=== PATIENT | male | born 1975 | race Caucasian/White ===

== ENCOUNTER 2016-04-15 16:06 | Emergency (ER) | payer MEDICAID ==
[2016-04-15 16:53] VITALS: BP 131/65
[2016-04-15] MEDS ORDERED: HYDROmorphone 1 MG/ML Syringe IM ONE (17:45)
[2016-04-15] MEDS ORDERED: Ondansetron 4 MG Tab.DIS PO ONE (17:50)
--- NOTE | 2016-04-15 17:57 | EDM.PDOC ---
ED HPI GI/ABDOMINAL - General Chief Complaint: Gastrointestinal Problem Stated Complaint: SURGERY LAST FRI/NO BM/DISCOMFORT Time Seen by Provider: 04/15/16 17:38 Source: Reports: Patient, Family, RN notes reviewed History Limitations: Reports: No limitations - History of Present Illness INITIAL COMMENTS - FREE TEXT/NARRATIVE: 40-year-old gentleman presents emergency Department day complaint of abdominal pain and distention, he recently underwent back surgery L3-L4 postop day 3 he states he has been passing gas but limited on bowel movements urine is passing but also seems to be decreased he has been needing and drinking okay back pain has improved leg pain has improved but he has more pain and distention in the abdomen - Related Data Allergies/ADRs: Allergies Allergy/AdvReac Type Severity Reaction Status Date / Time fexofenadine HCl Allergy Hives Verified 04/12/16 07:31 [From Lilly] oxycodone Allergy Hives Verified 04/12/16 07:31 Home Meds: Home Meds Hydrocodone/Acetaminophen [Hydrocodon-Acetaminophen 5-325] 1 tab PO ASDIRECTED PRN 04/15/16 [History] Magnesium Citrate [Citrate of Magnesia] 296 ml PO ASDIRECTED 04/15/16 [History] Magnesium Hydroxide [Milk of Magnesia] 30 ml PO ASDIRECTED 04/15/16 [History] Sennosides [Senna] 8.6 mg PO ASDIRECTED 04/15/16 [History] Past Medical History HEENT History: Reports: Impaired vision Other HEENT History: wears Respiratory History: Reports: Other (see below) Other Respiratory History: coughing Musculoskeletal History: Reports: Back pain, chronic Other Musculoskeletal History: R shoulder injury - Past Surgical History HEENT Surgical History: Reports: None Respiratory Surgical History: Reports: None Musculoskeletal Surgical History: Reports: Shoulder surgery Other Musculoskeletal Surgeries/Procedures:: R elbow. laminectomy Social & Family History - Tobacco Use Smoking Status *Q: Light Tobacco Smoker Years of Tobacco use: 20 Packs/Tins Daily: 1 Used Tobacco, but Quit: No Second Hand Smoke Exposure: No - Caffeine Use Caffeine Use: Reports: Coffee, Energy drinks, Soda - Alcohol Use Days Per Week of Alcohol Use: 0 Number of Drinks Per Day: 4 Total Drinks Per Week: 0 - Recreational Drug Use Recreational Drug Use: No Recreational Drug Type: Reports: Marijuana/Hashish Recreational Drug Use Frequency: Not Used In Over 4 Months ED ROS GENERAL - Review of Systems Review Of Systems: See Below Constitutional: Denies: fever, chills HEENT: Reports: No symptoms Respiratory: Reports: no symptoms Cardiovascular: Reports: No symptoms GI/Abdominal: Reports: Abdominal pain, Constipation, Distension, Nausea. Denies : Vomiting : Reports: no symptoms Musculoskeletal: Reports: back pain Skin: Reports: no symptoms (improved) Neurological: Reports: no symptoms ED EXAM, GI/ABD - Physical Exam Exam: See Below Text/Narrative:: General: male, moderate discomfort secondary to pain, alert and oriented x3 HEENT: head is atraumatic normocephalic, eyes pupils equal round reactive to light and accommodation sclera clear no conjunctivitis appreciated. Ears tympanic membranes clear and sadler landmarks and light reflex are present bilaterally canals are clear. Nose no septal deviation, nares are clear, no blood present. Mouth mucosa is moist and pink no erythema or exudate noted in soft palate, tongue is midline uvula is midline, dentition is intact. Neck: Supple no thyromegaly no tracheal deviation. Nodes: Cervical nodes subclavicular nodes nontender no palpable lymphadenopathy noted. Lungs: clear to auscultation bilaterally with symmetrical respirations, no adventitious noise appreciated. CV: Regular rate and rhythm S1 and S2 appreciated no murmurs rubs or gallops noted. Abdomen: Soft, generalized tenderness, no palpable masses or organomegaly appreciated, moderate distention, no guarding bowel sounds are present, Course - Vital Signs Last Recorded V/S: Last Vital Signs Temp 96.4 F 04/15/16 17:23 Pulse 73 04/15/16 17:23 Resp 20 04/15/16 17:23 BP 131/65 04/15/16 17:23 Pulse Ox 96 04/15/16 17:23 - Orders/Labs/Meds Orders: Active Orders 24 hr Category Date Time Status Peripheral IV Care [RC] . DIRECTED Care 04/15/16 18:40 Active Abdomen 1V Flat [CR] Stat Exams 04/15/16 17:45 Taken Abdomen Pelvis w Cont [CT] Stat Exams 04/15/16 18:39 Taken Sodium Chloride 0.9% [Normal Saline] 100 ml Med 04/15/16 19:30 Active IV ASDIRECTED Sodium Chloride 0.9% [Saline Flush] Med 04/15/16 18:39 Active 10 ml FLUSH ASDIRECTED PRN Peripheral IV Insertion Adult [OM.PC] Urgent Oth 04/15/16 18:36 Ordered Medication Orders Sodium Chloride (Normal Saline) 100 mls @ 3 mls/sec IV ASDIRECTED LAMONTE Last Admin: 04/15/16 19:32 Dose: 3 mls/sec Sodium Chloride (Saline Flush) 10 ml FLUSH ASDIRECTED PRN PRN Reason: Keep Vein Open Last Admin: 04/15/16 19:32 Dose: 10 ml Labs: Laboratory Tests 04/15/16 04/15/16 Range/Units 17:58 17:58 WBC 10.7 (4.5-11.0) K/uL RBC 4.89 (4.30-5.90) M/uL Hgb 14.4 (12.0-15.0) g/dL Hct 42.0 (40.0-54.0) % MCV 86 (80-98) fL MCH 29 (27-31) pg MCHC 34 (32-36) % Plt Count 242 (150-400) K/uL Neut % (Auto) 71 H (36-66) % Lymph % (Auto) 17 L (24-44) % [place] % (Auto) 11 H (2-6) % Eos % (Auto) 2 (2-4) % Baso % (Auto) 0 (0-1) % Sodium 139 L (140-148) mmol/L Potassium 4.3 (3.6-5.2) mmol/L Chloride 99 L (100-108) mmol/L Carbon Dioxide 29 (21-32) mmol/L Anion Gap 15.3 H (5.0-14.0) mmol/L BUN 15 (7-18) mg/dL Creatinine 1.0 (0.8-1.3) mg/dL Est Cr Clr Drug Dosing 106.70 mL/min Estimated GFR (MDRD) > 60 (>60) Glucose 115 H (74-106) mg/dL Calcium 8.8 (8.5-10.1) mg/dL Meds: Medications Generic Name Dose Route Start Last Admin Trade Name Freq PRN Reason Stop Dose Admin Sodium Chloride 100 mls @ 3 mls/sec 04/15/16 19:30 04/15/16 19:32 Normal Saline IV 3 mls/sec ASDIRECTED LAMONTE Administration Sodium Chloride 10 ml 04/15/16 18:39 04/15/16 19:32 Saline Flush FLUSH 10 ml ASDIRECTED PRN Administration Keep Vein Open Discontinued Medications Generic Name Dose Route Start Last Admin Trade Name Harpreetq PRN Reason Stop Dose Admin Hydromorphone HCl 1 mg 04/15/16 17:45 04/15/16 17:58 Dilaudid IM 04/15/16 17:46 1 mg ONETIME ONE Administration Iopamidol 150 ml 04/15/16 19:30 04/15/16 19:32 Isovue-300 (61%) IV 04/15/16 19:31 150 ml . DIRECTED LAMONTE Administration Ondansetron HCl 4 mg 04/15/16 17:50 04/15/16 18:01 Zofran Odt PO 04/15/16 17:51 4 mg ONETIME ONE Administration Sodium Chloride 10 ml 04/15/16 19:16 Saline Flush FLUSH 04/15/16 19:17 ONETIME ONE Departure - Departure Time of Disposition: 20:46 Disposition: Home, Self-Care 01 Condition: good Clinical Impression: Ileus, postoperative Forms: ED Department Discharge Additional Instructions: use the Reglan as needed every 6 hours to help stimulate the bowel, keep your followup appointment with surgery - My Orders Last 24 Hours: My Active Orders 04/15/16 17:45 Abdomen 1V Flat [CR] Stat 04/15/16 18:36 Peripheral IV Insertion Adult [OM.PC] Urgent 04/15/16 18:39 Abdomen Pelvis w Cont [CT] Stat Sodium Chloride 0.9% [Saline Flush] 10 ml FLUSH ASDIRECTED PRN 04/15/16 18:40 Peripheral IV Care [RC] . DIRECTED 04/15/16 19:30 Sodium Chloride 0.9% [Normal Saline] 100 ml IV ASDIRECTED - Assessment/Plan Last 24 Hours: My Active Orders 04/15/16 17:45 Abdomen 1V Flat [CR] Stat 04/15/16 18:36 Peripheral IV Insertion Adult [OM.PC] Urgent 04/15/16 18:39 Abdomen Pelvis w Cont [CT] Stat Sodium Chloride 0.9% [Saline Flush] 10 ml FLUSH ASDIRECTED PRN 04/15/16 18:40 Peripheral IV Care [RC] . DIRECTED 04/15/16 19:30 Sodium Chloride 0.9% [Normal Saline] 100 ml IV ASDIRECTED Plan: Assessment Acuity = acute Site and laterality = ileus Etiology = probably secondary to recent surgery Manifestations = abdominal pain Location of injury = home Lab values = CBC, CMP unremarkable flat film does show a markedly dilated colon a CT scan is consistent with an ileus Plan I did review labs and CT scan results with him he did have a bowel movement but passing gas while in the ED which had some improvement he was given one dose of Reglan while in the ED I did offer him hospital admission he declined at this time would prefer outpatient treatment therefore try Reglan 10 mg one tablet every 6 hours as needed keep his follow up appointment with surgery Patient was in agreement with the plan all questions were answered, they were instructed to return to the emergency department or call for worsening symptoms. This note was dictated using [employer] voice recognition software please call with any questions.
[2016-04-15] MEDS ORDERED: Sodium Chloride 0.9% 10 ML Syringe FLUSH PRN (18:39)
[2016-04-15] MEDS ORDERED: Sodium Chloride 0.9% 10 ML Syringe FLUSH ONE (19:16)
[2016-04-15] MEDS ORDERED: Iopamidol 612 MG/ML 150 ML Bottle IV SCH (19:30)
[2016-04-15] MEDS ORDERED: Sodium Chloride 0.9% 100 ML IV SCH (19:30)
[2016-04-15] MEDS: Metoclopramide 10 MG/2 ML SDV IVPUSH ONE ×2 (20:00→20:45)
[2016-04-15] MEDS ORDERED: Metoclopramide 10 MG Tab PO ONE (21:02)
--- NOTE | 2016-04-16 08:49 | CR ---
Abdomen 1V Flat HISTORY: Abdominal pain COMPARISON: CT scan 04/15/2016. FINDINGS: Mildly distended colon with gas. Findings likely represent colonic ileus. Distal colonic o bstructive process could have a similar appearance. Recommend follow-up films based on clinical symp tomatology. Report
== END 2016-04-15 21:16 | disposition home or self-care (01) ==
LOC: JP.ED 16:06
DX: K91.3 Postprocedural intestinal obstruction (principal); F17.210 Nicotine dependence, cigarettes, uncomplicated; Z98.890 Other specified postprocedural states; Z79.899 Other long term (current) drug therapy; Z88.5 Allergy status to narcotic agent; Z88.8 Allergy status to other drugs, medicaments and biological substances
CPT/HCPCS: 36415; 74000; 74177; 80048; 85025; 96372; 96374; 99285; A9270; J1170; J2765; J7030; J7050

== ENCOUNTER 2016-09-30 19:51 | Emergency (ER) | payer MEDICAID ==
[2016-09-30 20:04] VITALS: BP 129/85
--- NOTE | 2016-09-30 20:39 | EDM.PDOC ---
ED HPI GENERAL MEDICAL PROBLEM - General Chief Complaint: ENT Problem Stated Complaint: TOOTHACHE Time Seen by Provider: 09/30/16 20:10 Source of Information: Reports: Patient History Limitations: Reports: No Limitations - History of Present Illness INITIAL COMMENTS - FREE TEXT/NARRATIVE: Noman presents today with complaints of acute right sided upper dental pain. He was seen by a [facility]ist today and provided an antibiotic for dental impaction. Surgical consult pending. Onset: Today Quality: Reports: Sharp, Stabbing, Throbbing Severity: Moderate Improves with: Reports: Other (mild improvement with use of ibuprofen. ) Associated Symptoms: Reports: Headaches, Nausea/Vomiting. 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 Pain Score (Numeric/FACES): 7 - Related Data Allergies Allergy/AdvReac Type Severity Reaction Status Date / Time fexofenadine HCl Allergy Hives Verified 09/30/16 20:01 [From Lilly] oxycodone Allergy Hives Verified 09/30/16 20:01 Home Meds: Home Meds Hydrocodone/Acetaminophen [Hydrocodon-Acetaminophen 5-325] 1 tab PO ASDIRECTED PRN 04/15/16 [History] Magnesium Citrate [Citrate of Magnesia] 296 ml PO ASDIRECTED PRN 04/15/16 [ History] Magnesium Hydroxide [Milk of Magnesia] 30 ml PO ASDIRECTED PRN 04/15/16 [History ] Sennosides [Senna] 8.6 mg PO ASDIRECTED PRN 04/15/16 [History] Past Medical History HEENT History: Reports: Impaired Vision Other HEENT History: wears Respiratory History: Reports: Other (See Below) Other Respiratory History: coughing Genitourinary History: Reports: Renal Calculus Musculoskeletal History: Reports: Back Pain, Chronic Other Musculoskeletal History: R shoulder injury - Past Surgical History Neurological Surgical History: Reports: Laminectomy, Lumbar Spine Musculoskeletal Surgical History: Reports: Shoulder Surgery Social & Family History - Tobacco Use Smoking Status *Q: Current Every Day Smoker Years of Tobacco use: 25 Packs/Tins Daily: 1 Used Tobacco, but Quit: No Second Hand Smoke Exposure: No - Caffeine Use Caffeine Use: Reports: Coffee, Energy Drinks, Soda - Alcohol Use Days Per Week of Alcohol Use: 0 Number of Drinks Per Day: 4 Total Drinks Per Week: 0 - Recreational Drug Use Recreational Drug Use: No Recreational Drug Type: Reports: Marijuana/Hashish Recreational Drug Use Frequency: Not Used In Over 4 Months ED ROS ENT - Review of Systems Review Of Systems: See Below Constitutional: Denies: Fever, Chills, Diaphoresis HEENT: Reports: Dental Pain, Ear Pain. Denies: Ear Discharge, Eye Discharge, Eye Pain, Hearing Loss, Nosebleed, Nose Pain, Sinus Problem, Throat Pain, Throat Swelling, Vertigo, Vision Change Respiratory: Denies: Shortness of Breath, Wheezing, Cough, Sputum Cardiovascular: Denies: Chest Pain, Dyspnea on Exertion, Lightheadedness, Palpitations, Syncope GI/Abdominal: Reports: Nausea. Denies: Constipation, Diarrhea, Distension, Vomiting : Reports: No Symptoms Musculoskeletal: Reports: No Symptoms Skin: Denies: Cyanosis, Jaundice, Rash, Erythema, Wound, Lesions Neurological: Reports: Headache. Denies: Dizziness, Numbness, Tingling Psychiatric: Reports: No Symptoms Hematologic/Lymphatic: Reports: No Symptoms Immunologic: Reports: No Symptoms ED EXAM, ENT - Physical Exam Exam: See Below Text/Narrative:: Noman is an alert, oriented and pleasant 41 year old male presenting for dental pain. Pain has worsened during day today, use of ibuprofen not helping with pain. He was evaluated in [place] per a dentist and provided antibiotic with referral to oral surgeon for wisdom tooth extraction at site of pain. Exam Limited By: No Limitations General Appearance: Alert, WD/WN, No Apparent Distress Eye Exam: Bilateral Eye: EOMI, PERRL Ears: Normal External Exam, Normal Canal, Hearing Grossly Normal, Other (Normal TM to right ear, left TM is dull with mild redness. ) Nose: Normal Inspection, Normal Mucousa, No Blood Mouth/Throat: Normal Inspection, Normal Gums, Normal Lips, Dental Pain, Dental Tenderness, Other (Noted dental caries to multiple teeth. ). No: Dental Trauma , Drooling, Lip Swelling, Lip Ulcers, Oral Ulcers, Tongue Swelling, Tonsillar Erythema, Tonsillar Exudates, Tonsillar Swelling, Uvular Deviation, Uvular Edema Head: Atraumatic, Normocephalic Neck: Normal Inspection, Supple, Non-Tender, Full Range of Motion. No: Lymphadenopathy (R), Lymphadenopathy (L) Respiratory/Chest: No Respiratory Distress, Lungs Clear, Normal Breath Sounds, No Accessory Muscle Use, Chest Non-Tender Cardiovascular: Normal Peripheral Pulses, Regular Rate, Rhythm, No Edema, No Murmur, No Rub Back: Normal Inspection, Full Range of Motion. No: CVA Tenderness (R), CVA Tenderness (L) Extremities: Normal Inspection, Normal Range of Motion, Non-Tender, No Pedal Edema, Normal Capillary Refill Neurological: Alert, Oriented, CN II-XII Intact, Normal Cognition, Normal Gait, No Motor/Sensory Deficits, Other (No nystagmus, dizziness or vertigo. No photophobia with pain. ) Psychiatric: Normal Affect, Normal Mood Skin: Warm, Dry, Intact, Normal Color, No Rash Lymphatic: No Adenopathy Course - Vital Signs Last Recorded V/S: Last Vital Signs Temp 36.3 C 09/30/16 20:03 Pulse 58 L 09/30/16 20:03 Resp 16 09/30/16 20:03 BP 129/85 09/30/16 20:03 Pulse Ox 98 09/30/16 20:03 - Re-Assessments/Exams Free Text/Narrative Re-Assessment/Exam: 09/30/16 20:35 [place] SUPERVISOR OVENS reviewed for multiple states. Last opiate 04/13/16 #120 Patient was status post laminectomy procedure. Departure - Departure Time of Disposition: 20:32 Disposition: Home, Self-Care 01 Condition: Good Clinical Impression: Dental impaction, Pain, dental - Discharge Information Instructions: Tooth Injuries, [id number] Referrals: Maynor Zacarias PA-C [Primary Care Provider] - Forms: ED Department Discharge Additional Instructions: You are suffering from dental pain due to dental impaction. Continue to take the prescribed antibiotic you were given today. Pain decreases after use of antibiotic for 48 hours. You can take Ibuprofen 600mg to 800mg by mouth three times a day for pain (anti- inflammatory effect) with food to prevent stomach irritation. Acetaminophen 500mg to 1000mg three times a day, alternating with use of ibuprofen can also be used for pain. Hydrocodone/acetaminophen 5/325 mg, one to two tablets by mouth three times a day for pain not relieved with use of ibuprofen or acetaminophen can be used. You are provided a hard copy prescription for hydrocodone/acetaminophen 5/325mg , one to two tabs three times a day for 5 days #15. Follow up with your dentist and oral surgeon as directed. If you pain or symptoms worsen, have facial swelling, fever, difficulty eating or drinking, please return. - Assessment/Plan Assessment:: Dental impaction Dental pain Pending surgical consult Plan: Continue to take the prescribed antibiotic given today. Pain decreases after use of antibiotic for 48 hours. He can take Ibuprofen 600mg to 800mg by mouth three times a day for pain (anti- inflammatory effect) with food to prevent stomach irritation. Acetaminophen 500mg to 1000mg three times a day, alternating with use of ibuprofen can also be used for pain, not taking more then 4,000mg PO in one day. Hydrocodone/acetaminophen 5/325 mg, one to two tablets by mouth three times a day for pain not relieved with use of ibuprofen or acetaminophen can be used. Patient provided a hard copy prescription for hydrocodone/acetaminophen 5/325mg , one to two tabs three times a day for 5 days #20. Follow up with dentist and oral surgeon as directed. If pain or symptoms worsen, have facial swelling, fever, difficulty eating or drinking, please return.
== END 2016-09-30 21:07 | disposition home or self-care (01) ==
LOC: JP.ED 19:51
DX: K01.1 Impacted teeth (principal); F17.210 Nicotine dependence, cigarettes, uncomplicated; Z87.442 Personal history of urinary calculi; Z98.890 Other specified postprocedural states; Z88.5 Allergy status to narcotic agent; Z88.8 Allergy status to other drugs, medicaments and biological substances
CPT/HCPCS: 99283

== ENCOUNTER 2017-05-14 08:01 | Inpatient (IN) | payer OTHER, MEDICAID ==
[~2017-05-14 08:01] MED LIST: Povidone-Iodine 10% Soln 118.25 ML Bottle ONE; Thrombin (Bovine) 5,000 Unit Kit ONE
[2017-05-14] MEDS ORDERED: Acetaminophen 500 MG Tab PO ONE (08:15)
[2017-05-14] MEDS ORDERED: Gabapentin 300 MG Cap PO ONE (08:15)
[2017-05-14] MEDS ORDERED: Scopolamine 1.5 MG Transdermal Patch TOP SCH (08:15)
[2017-05-14] MEDS ORDERED: Lactated Ringers 1,000 ML IV SCH (08:30)
[2017-05-14] MEDS ORDERED: Propofol 200 MG/20 ML SDV ONE (08:43)
[2017-05-14] MEDS ORDERED: Ondansetron 4 MG/2 ML SDV ONE (08:43)
[2017-05-14] MEDS ORDERED: Rocuronium 50 MG/5 ML Vial ONE (08:43)
[2017-05-14] MEDS ORDERED: Succinylcholine 200 MG/10 ML MDV ONE (08:43)
[2017-05-14] MEDS ORDERED: Dexamethasone 4 MG/ML SDV ONE (08:43)
[2017-05-14] MEDS ORDERED: Ketamine 500 MG/5 ML MDV IV ONE (09:15)
[2017-05-14] MEDS ORDERED: Ropivacaine 49.25 ML, Ketorolac 30 MG, EPINEPHrine 0.5 MG, cloNIDine 80 MCG, Sodium Chl... INJECT ONE ×5 (09:15)
[2017-05-14] MEDS ORDERED: Lactated Ringers 1,000 ML IV ONE (09:25)
[2017-05-14] MEDS: ceFAZolin 2 GM in Premix Bag 1 BAG IV ONE ×2 (12:02→15:16)
[2017-05-14] MEDS: Tranexamic Acid 1,000 MG in Sodium Chloride 0.9% 50 ML IV SCH ×2 (12:03→12:44)
[2017-05-14] MEDS ORDERED: Aluminum Hydroxide/Magnesium Hydroxide/Simethicone Susp 30 ML Cup PO PRN ×2 (12:37→14:03)
[2017-05-14] MEDS ORDERED: oxyCODONE 5 MG Tab PO PRN (12:37)
[2017-05-14] MEDS ORDERED: Naloxone 0.4 MG/ML SDV IVPUSH PRN ×2 (12:37→14:03)
[2017-05-14] MEDS ORDERED: Ondansetron 4 MG/2 ML SDV IVPUSH PRN ×2 (12:37→14:03)
[2017-05-14] MEDS ORDERED: Acetaminophen 1,000 MG in Premix Bag 1 BAG IV ONE ×3 (12:37→15:00)
[2017-05-14] MEDS ORDERED: HYDROmorphone 1 MG/ML Syringe IVPUSH PRN ×2 (12:37→14:03)
[2017-05-14] MEDS ORDERED: Zolpidem 5 MG Tab PO PRN ×2 (12:37→14:03)
[2017-05-14] MEDS ORDERED: ceFAZolin 2 GM in Sodium Chloride 0.9% 50 ML IV SCH (12:45)
--- NOTE | 2017-05-14 13:14 | OR ---
DATE OF PROCEDURE: 05/14/2017 PREOPERATIVE DIAGNOSIS: L4-5 stenosis. POSTOPERATIVE DIAGNOSES: L4-5 stenosis and L4-5 left pars defect. PROCEDURES: 1. L4-5 laminectomy. 2. Left L5-S1 hemilaminectomy. WELL DRILL OPERATOR: SERA Martinez. Physician assistant surveyor, SERA Martinez, played an essential role in assisting in this case, helping to position the patient, retract structures as needed, as well as suturing and cutting sutures as indicated. Her presence improved patient's safety and decreased operative time. ANESTHESIA: General endotracheal intubation. FLUID: Lactated Ringer solution. ESTIMATED BLOOD LOSS: 50 mL. COMPLICATIONS: None. SPECIMEN: None. DISCHARGE DISPOSITION: Stable to PACU. INDICATIONS FOR PROCEDURE: The patient is well known to me. We performed a previous L3-L5 laminectomy. He did very well after the procedure, but then had intermittent episodes of back pain and increasing back pain and radicular symptoms. He had failed nonoperative treatment. Risks and benefits of the procedure were explained to the patient. Informed consent was obtained. Preoperative imaging confirmed residual L4-5 stenosis. DETAILS OF PROCEDURE: The patient was seen preoperatively by myself and the Anesthesia staff in the preoperative holding area, where the operative site was marked. He was brought to the operative suite by the Anesthesia staff, where general anesthesia was administered. He was placed into a Alfredo table in a prone position. All extremities were found to be well padded. The bed was flexed. The fluoroscopy unit was draped sterilely. A time-out was called identifying the correct patient, the correct procedure, the correct site, and that antibiotics had been begun within the appropriate period of time. Lateral fluoroscopy was used to identify the L4-5 interspace. I went through a midline incision and used Bovie electrocautery, a bipolar electrocautery for hemostasis during the case. I used cerebellars for initial retraction down the level of the L4 and L5 spinous processes. I then dissected over the spinous processes, their lamina, and to the medial aspect of their facets. I confirmed my level on fluoroscopy and then proceeded with an L4-5 laminectomy. I confirmed my level in the foramen, at the L4-5 foramen. While we were doing this procedure, I noticed that there was an unstable segment at L5-S1, there was a pars defect. There was a large unstable portion of the lamina. Due to the back pain that the patient had, that could have been contributing from this instability, I did perform a left hemilaminectomy. I left as much of the facets intact as I could; although, they were still mobile. I did confirm that our foramina at L4-5 and L5-S1 on the left were patent ,with a long ball. I then copiously irrigated with saline and then placed a small amount of Floseal in the lateral recesses, allowed that to dry, and then tamped any excess out. We then closed with #2 STRATAFIX, #1 STRATAFIX, 3-0 STRATAFIX, and Prineo followed by a sterile dressing. The patient was then transferred to his hospital bed in the supine position and taken to the PACU in a stable condition. Vj Vu DO /[id number]
[2017-05-14] MEDS ORDERED: Acetaminophen/HYDROcodone 325-7.5 MG Tab PO PRN (13:34)
[2017-05-14] MEDS: Acetaminophen/HYDROcodone 325-7.5 MG Tab PO PRN ×3 (14:30→22:55)
[2017-05-14] MEDS: VERIFY SCOPOLAMINE PATCH TOP SCH (14:45)
[2017-05-14] MEDS: Nicotine 21 MG/24 Hr Patch TRDERM SCH (15:20)
[2017-05-14] MEDS: ceFAZolin 2 GM in Premix Bag 1 BAG IV SCH (18:38)
[2017-05-14] MEDS: Sennosides 8.6 MG Tab PO SCH (20:12)
[2017-05-14] MEDS: Magnesium Hydroxide 400 MG/5 ML Susp 30 ML Cup PO SCH (20:12)
[2017-05-14] MEDS ORDERED: Sennosides 8.6 MG Tab PO SCH (21:00)
[2017-05-14] MEDS ORDERED: Magnesium Hydroxide 400 MG/5 ML Susp 30 ML Cup PO SCH (21:00)
[2017-05-15] MEDS: Acetaminophen/HYDROcodone 325-7.5 MG Tab PO PRN ×5 (02:35→20:20)
[2017-05-15] MEDS: ceFAZolin 2 GM in Premix Bag 1 BAG IV SCH ×2 (02:35→10:39)
[2017-05-15] MEDS: Nicotine 21 MG/24 Hr Patch TRDERM SCH (08:03)
[2017-05-15] MEDS: VERIFY SCOPOLAMINE PATCH TOP SCH (08:04)
[2017-05-15] MEDS: Sennosides 8.6 MG Tab PO SCH ×2 (08:04→20:20)
[2017-05-15] MEDS: Magnesium Hydroxide 400 MG/5 ML Susp 30 ML Cup PO SCH ×2 (08:04→20:19)
[2017-05-15] MEDS ORDERED: Lactated Ringers 1,000 ML IV ONE (09:54)
--- NOTE | 2017-05-15 10:36 | PCM.PN ---
- General Info Date of Service: 05/15/17 Admission Dx/Problem (Free Text): patient is status postop day 1 of a lumbar laminectomy of L4-L5. He is doing very well. Patient is emulating without any difficulties. Patient does have a history of an ileus and is concerned regarding this. He is taking pain medication as prescribed and is increasing his fluids. Functional Status: Reports: Pain Controlled, Tolerating Diet, Ambulating, Urinating - Patient Data Vitals - Most Recent: Last Vital Signs Temp 36.6 C 05/15/17 07:41 Pulse 79 05/15/17 07:41 Resp 16 05/15/17 07:41 BP 135/88 05/15/17 07:41 Pulse Ox 96 05/15/17 07:41 Weight - Most Recent: 232 lb I&O - Last 24 Hours: Intake & Output 05/14/17 05/15/17 05/15/17 22:59 06:59 14:59 Intake Total 466 450 900 Output Total 800 Balance -334 450 900 Lab Results Last 24 Hours: Laboratory Results - last 24 hr 05/15/17 05/15/17 Range/Units 04:55 04:55 WBC 12.3 H (4.5-11.0) K/uL RBC 4.61 (4.30-5.90) M/uL Hgb 13.3 D (12.0-15.0) g/dL Hct 40.1 (40.0-54.0) % MCV 87 (80-98) fL MCH 29 (27-31) pg MCHC 33 (32-36) % Plt Count 197 (150-400) K/uL Neut % (Auto) 73 H (36-66) % Lymph % (Auto) 15 L (24-44) % [place] % (Auto) 11 H (2-6) % Eos % (Auto) 1 L (2-4) % Baso % (Auto) 0 (0-1) % Sodium 138 L (140-148) mmol/L Potassium 4.5 (3.6-5.2) mmol/L Chloride 104 (100-108) mmol/L Carbon Dioxide 26 (21-32) mmol/L Anion Gap 12.5 (5.0-14.0) mmol/L BUN 16 (7-18) mg/dL Creatinine 1.1 (0.8-1.3) mg/dL Est Cr Clr Drug Dosing 96.02 mL/min Estimated GFR (MDRD) > 60 (>60) Glucose 124 H (74-106) mg/dL Calcium 8.2 L (8.5-10.1) mg/dL Med Orders - Current: Current Medications Hydrocodone Bitart/Acetaminophen ([place] 325-7.5 Mg) 1 tab PO Q4H PRN PRN Reason: Pain Last Admin: 05/15/17 07:57 Dose: 1 tab Al Hydroxide/Mg Hydroxide (Mag-Al Plus) 30 ml PO Q4H PRN PRN Reason: Indigestion Hydromorphone HCl (Dilaudid) 1 mg IVPUSH Q2H PRN PRN Reason: Pain Stop: 05/15/17 12:38 Lactated Ringer's (Ringers, Lactated) 1,000 mls @ 100 mls/hr IV ASDIRECTED [facility] Last Admin: 05/14/17 09:31 Dose: 100 mls/hr Magnesium Hydroxide (Milk Of Magnesia) 30 ml PO BID [facility] Last Admin: 05/15/17 08:04 Dose: 30 ml Naloxone HCl (Narcan) 0.2 mg IVPUSH ONETIME PRN PRN Reason: Oversedation Nicotine (Habitrol) 21 mg TRDERM DAILY [facility] Last Admin: 05/15/17 08:03 Dose: 21 mg Verify Scopolamine (Patch) 0 each TOP DAILY [facility] Last Admin: 05/15/17 08:04 Dose: Not Given Ondansetron HCl (Zofran) 8 mg IVPUSH Q4H PRN PRN Reason: Nausea/Vomiting Scopolamine (Transderm-Scop) 1.5 mg TOP Q72H [facility] Stop: 05/17/17 06:15 Last Admin: 05/14/17 08:26 Dose: 1.5 mg Senna (Senna) 8.6 mg PO BID [facility] Last Admin: 05/15/17 08:04 Dose: 8.6 mg Zolpidem Tartrate (Ambien) 5 mg PO BEDTIME PRN PRN Reason: Sleep Discontinued Medications Acetaminophen (Tylenol Extra Strength) 1,000 mg PO ONETIME ONE Stop: 05/14/17 08:16 Last Admin: 05/14/17 08:27 Dose: 1,000 mg Hydrocodone Bitart/Acetaminophen ([place] 325-7.5 Mg) 1 tab PO Q4H PRN PRN Reason: Pain Al Hydroxide/Mg Hydroxide (Mag-Al Plus) 30 ml PO Q4H PRN PRN Reason: Indigestion Ropivacaine 49.25 ml/Ketorolac Tromethamine 30 mg/Epinephrine HCl 0.5 mg/ Clonidine HCl 80 mcg/ Sodium Chloride 48.45 ml 0 ml INJECT ONETIME ONE Stop: 05/14/17 09:16 Last Admin: 05/14/17 12:04 Dose: 100 ml Dexamethasone (Dexamethasone) 4 mg .ROUTE .STK-MED ONE Stop: 05/14/17 08:44 Fentanyl Citrate (Fentanyl) 500 mcg .ROUTE .STK-MED ONE Stop: 05/14/17 08:44 Gabapentin (Neurontin) 300 mg PO ONETIME ONE Stop: 05/14/17 08:16 Last Admin: 05/14/17 08:26 Dose: 300 mg Hydromorphone HCl (Dilaudid) 1 mg IVPUSH Q2H PRN PRN Reason: Pain Stop: 05/15/17 12:38 Tranexamic Acid 1,000 mg/ (Sodium Chloride) 60 mls @ 240 mls/hr IV Q3H [facility] Stop: 05/14/17 12:29 Last Admin: 05/14/17 12:44 Dose: 240 mls/hr Ketamine HCl 100 mg/ Sodium (Chloride) 100 mls @ 23.85 mls/hr IV ASDIRECTED [facility] Stop: 05/14/17 11:15 Cefazolin Sodium/Dextrose 2 gm (/ Premix) 50 mls @ 100 mls/hr IV ONETIME ONE Stop: 05/14/17 09:29 Last Admin: 05/14/17 15:16 Dose: Not Given Acetaminophen 1,000 mg/ Premix 100 mls @ 400 mls/hr IV NOW ONE Stop: 05/14/17 12:51 Last Admin: 05/14/17 19:03 Dose: Not Given Cefazolin Sodium 2 gm/ Sodium (Chloride) 50 mls @ 100 mls/hr IV Q8H [facility] Stop: 05/15/17 05:14 Last Admin: 05/14/17 19:04 Dose: Not Given Cefazolin Sodium/Dextrose 2 gm (/ Premix) 50 mls @ 100 mls/hr IV Q8H [facility] Stop: 05/15/17 10:29 Last Admin: 05/15/17 02:35 Dose: 100 mls/hr Acetaminophen 1,000 mg/ Premix 100 mls @ 400 mls/hr IV NOW ONE Stop: 05/14/17 15:14 Last Admin: 05/14/17 15:21 Dose: 400 mls/hr Lactated Ringer's (Ringers, Lactated) 1,000 mls @ as directed IV .STK-MED ONE Stop: 05/14/17 09:26 Ketamine HCl (Ketalar) 40 mg IV ONETIME ONE Stop: 05/14/17 09:16 Last Admin: 05/14/17 14:44 Dose: Not Given Magnesium Hydroxide (Milk Of Magnesia) 30 ml PO BID [facility] Naloxone HCl (Narcan) 0.2 mg IVPUSH ONETIME PRN PRN Reason: Oversedation Ondansetron HCl (Zofran) 8 mg IVPUSH Q4H PRN PRN Reason: Nausea/Vomiting Ondansetron HCl (Zofran) 4 mg .ROUTE .STK-MED ONE Stop: 05/14/17 08:44 Oxycodone HCl (Oxycodone) 10 mg PO Q4H PRN PRN Reason: Pain Stop: 05/15/17 12:38 Oxycodone/Acetaminophen ([place] 325-5 Mg) 2 tab PO Q4H PRN PRN Reason: Pain Povidone Iodine (Betadine 10% Soln) Confirm Administered Dose 1 ml .ROUTE .STK- MED ONE Stop: 05/14/17 07:01 Last Admin: 05/14/17 13:01 Dose: 1 ml Propofol (Diprivan 20 Ml) 200 mg .ROUTE .STK-MED ONE Stop: 05/14/17 08:44 Rocuronium [place] (Zemuron) 50 mg .ROUTE .STK-MED ONE Stop: 05/14/17 08:44 Senna (Senna) 8.6 mg PO BID [facility] Succinylcholine Chloride (Quelicin) 200 mg .ROUTE .STK-MED ONE Stop: 05/14/17 08:44 Thrombin (Thrombin-Jmi) Confirm Administered Dose 15,000 unit .ROUTE .STK-MED ONE Stop: 05/14/17 07:01 Last Admin: 05/14/17 13:00 Dose: 10,000 unit Zolpidem Tartrate (Ambien) 5 mg PO BEDTIME PRN PRN Reason: Sleep - Exam General: Alert, Oriented Extremities: Normal Inspection Peripheral Pulses: 2+: Dorsalis Pedis (L), Dorsalis Pedis (R) Skin: Warm, Dry, Intact Wound/Incisions: Healing Well, Dressing Dry and Intact Neurological: No New Focal Deficit Psy/Mental Status: Alert - Problem List Review Problem List Initiated/Reviewed/Updated: Yes - My Orders Last 24 Hours: My Active Orders 05/14/17 12:37 Patient Status [ADT] Timed Resuscitation Status Routine 05/14/17 12:38 Head of Bed Elevation [RC] CONTINUOUS Immobilizer [RC] ASDIRECTED Intake and Output [RC] QSHIFT Neurovascular Check [RC] Q4HR Notify Provider Intake and Out [RC] ASDIRECTED Notify Provider Laboratory Res [RC] ASDIRECTED Notify Provider Status Change [RC] ASDIRECTED Notify Provider Vital Signs [RC] ASDIRECTED Oxygen Therapy [RC] PRN Pneumonia Education [RC] UPON Pulse Oximetry [RC] CONTINUOUS RT Incentive Spirometry [RC] Q1HWA Turn, Cough, Deep Breathe [RC] .PRN Turn, Cough, Deep Breathe [RC] Q1HWA Up to Chair [RC] TIDMEALS Vital Signs [RC] Q4HR Wound Care [RC] Q12H OT Evaluation and Treatment [CONS] Routine PT Evaluation and Treatment [CONS] Routine Respiratory Care Assess and Treatment [CONS] Routine Convert IV to Saline Lock [OM.PC] Routine Encourage Fluids [OM.PC] Routine Sequential Compression Device [OM.PC] Routine Sequential Compression Device [OM.PC] Stat 05/14/17 12:45 Oral Care [OM.PC] BID 05/14/17 14:03 Alum Hydrox/Mag Hydrox/Simeth [Mag-Al Plus] 30 ml PO Q4H PRN HYDROmorphone [Dilaudid] 1 mg IVPUSH Q2H PRN Naloxone [Narcan] 0.2 mg IVPUSH ONETIME PRN Ondansetron [Zofran] 8 mg IVPUSH Q4H PRN Zolpidem [Ambien] 5 mg PO BEDTIME PRN 05/14/17 15:00 Nicotine [Habitrol] 21 mg TRDERM DAILY 05/14/17 21:00 Magnesium Hydroxide [Milk of Magnesia] 30 ml PO BID Sennosides [Senna] 8.6 mg PO BID 05/15/17 12:45 Oral Care [OM.PC] BID 05/16/17 05:00 BASIC METABOLIC PANEL,BMP [CHEM] DAILY CBC WITH AUTO DIFF [HEME] DAILY 05/16/17 12:45 Oral Care [OM.PC] BID 05/17/17 05:00 BASIC METABOLIC PANEL,BMP [CHEM] DAILY CBC WITH AUTO DIFF [HEME] DAILY 05/17/17 12:45 Oral Care [OM.PC] BID 05/18/17 05:00 BASIC METABOLIC PANEL,BMP [CHEM] DAILY CBC WITH AUTO DIFF [HEME] DAILY 05/18/17 12:45 Oral Care [OM.PC] BID 05/19/17 05:00 CBC WITH AUTO DIFF [HEME] DAILY 05/19/17 12:45 Oral Care [OM.PC] BID 05/20/17 12:45 Oral Care [OM.PC] BID 05/21/17 12:45 Oral Care [OM.PC] BID 05/22/17 12:45 Oral Care [OM.PC] BID 05/23/17 12:45 Oral Care [OM.PC] BID - Plan Plan:: we will continue to monitor the patient today. He is requesting to go home and I advised him that I like him to have a bowel movement before he is discharged. If he does have one today he may go home today. He will continue with PT OT and pain management.
[2017-05-15] MEDS ORDERED: Acetaminophen/oxyCODONE 325-5 MG Tab PO PRN (12:38)
[2017-05-16] MEDS: Acetaminophen/HYDROcodone 325-7.5 MG Tab PO PRN ×2 (01:57→07:53)
[2017-05-16] MEDS: Magnesium Hydroxide 400 MG/5 ML Susp 30 ML Cup PO SCH (08:01)
[2017-05-16] MEDS: Nicotine 21 MG/24 Hr Patch TRDERM SCH (08:01)
[2017-05-16] MEDS: VERIFY SCOPOLAMINE PATCH TOP SCH (08:02)
[2017-05-16] MEDS: Sennosides 8.6 MG Tab PO SCH (08:04)
[2017-05-16 11:22] VITALS: BP 130/83
--- NOTE | 2017-05-19 13:07 | PCM.DCSUM1 ---
Discharge Summary - Hospital Course Free Text/Narrative:: I the pleasure seeing the patient today. He is status postop day 2 of a lumbar fusion. He is doing very well. Patient is having no pain issues at this time. Pain is under control with oral pain medication. He is MNA with high difficulties. Patient has had bowel movements with no issues. - Discharge Data Discharge Date: 05/16/17 Discharge Disposition: Home, Self-Care 01 Condition: Good - Patient Summary/Data Consults: Consultations 05/14/17 12:38 OT Evaluation and Treatment [CONS] Routine Please Evaluate and Treat. OT Reason for Consult: Strengthening This query below is only for informational purposes and is not editable. PT Evaluation and Treatment [CONS] Routine Please Evaluate and Treat. PT Reason for Consult: Strengthening This query below is only for informational purposes and is not editable. Respiratory Care Assess and Treatment [CONS] Routine Comment: Physician Instructions: Post-Op Pneumonia Prevention - Patient Instructions Diet: Usual Diet as Tolerated Activity: Apply Ice, As Tolerated Driving: Do Not Drive Showering/Bathing: May Shower, No Tub Bathing/Swimming Wound/Incision Care: Keep Operative Site/Wound Site Clean and Dry, Change Dressing Daily Notify Provider of: Fever, Increased Pain, Swelling and Redness, Drainage, Nausea and/or Vomiting - Discharge Plan Prescriptions/Med Rec: Acetaminophen/HYDROcodone [[place] 325-5 MG] 1 tab PO Q4H PRN #90 tab PRN Reason: Pain Sennosides [Senna] 8.6 mg PO BID #60 tablet Home Medications: Home Meds Diazepam [Valium] 5 mg PO Q8H PRN 05/01/17 [History] Polyethylene Glycol 3350 [MiraLAX] 17 gm PO DAILY PRN 05/01/17 [History] methylPREDNISolone [Medrol] 4 mg PO DAILY 05/01/17 [History] Acetaminophen/HYDROcodone [[place] 325-5 MG] 1 tab PO Q4H PRN #90 tab 05/16/17 [Rx ] Sennosides [Senna] 8.6 mg PO BID #60 tablet 05/16/17 [Rx] Patient Handouts: Steps to Quit Smoking, [id number], Laminectomy, Laminectomy , Care After Referrals: Vj Vu DO [Physician] - 05/29/17 3:00 pm - Discharge Summary/Plan Comment DC Time >30 min.: Yes Discharge Summary/Plan Comment: patient is doing very well we will discharge him today. He is to follow-up with us in 1 month. was instructed on dressing changes. He will be sent home on Percocet. - Patient Data Vitals - Most Recent: Last Vital Signs Temp 36.8 C 05/16/17 11:00 Pulse 71 05/16/17 11:00 Resp 18 05/16/17 11:00 BP 130/83 05/16/17 11:00 Pulse Ox 97 05/16/17 11:00 Weight - Most Recent: 231 lb 15.985 oz Med Orders - Current: Current Medications Discontinued Medications Acetaminophen (Tylenol Extra Strength) 1,000 mg PO ONETIME ONE Stop: 05/14/17 08:16 Last Admin: 05/14/17 08:27 Dose: 1,000 mg Hydrocodone Bitart/Acetaminophen ([place] 325-7.5 Mg) 1 tab PO Q4H PRN PRN Reason: Pain Hydrocodone Bitart/Acetaminophen ([place] 325-7.5 Mg) 1 tab PO Q4H PRN PRN Reason: Pain Last Admin: 05/16/17 07:53 Dose: 1 tab Al Hydroxide/Mg Hydroxide (Mag-Al Plus) 30 ml PO Q4H PRN PRN Reason: Indigestion Al Hydroxide/Mg Hydroxide (Mag-Al Plus) 30 ml PO Q4H PRN PRN Reason: Indigestion Ropivacaine 49.25 ml/Ketorolac Tromethamine 30 mg/Epinephrine HCl 0.5 mg/ Clonidine HCl 80 mcg/ Sodium Chloride 48.45 ml 0 ml INJECT ONETIME ONE Stop: 05/14/17 09:16 Last Admin: 05/14/17 12:04 Dose: 100 ml Dexamethasone (Dexamethasone) 4 mg .ROUTE .STK-MED ONE Stop: 05/14/17 08:44 Fentanyl Citrate (Fentanyl) 500 mcg .ROUTE .STK-MED ONE Stop: 05/14/17 08:44 Gabapentin (Neurontin) 300 mg PO ONETIME ONE Stop: 05/14/17 08:16 Last Admin: 05/14/17 08:26 Dose: 300 mg Hydromorphone HCl (Dilaudid) 1 mg IVPUSH Q2H PRN PRN Reason: Pain Stop: 05/15/17 12:38 Hydromorphone HCl (Dilaudid) 1 mg IVPUSH Q2H PRN PRN Reason: Pain Stop: 05/15/17 12:38 Tranexamic Acid 1,000 mg/ (Sodium Chloride) 60 mls @ 240 mls/hr IV Q3H [facility] Stop: 05/14/17 12:29 Last Admin: 05/14/17 12:44 Dose: 240 mls/hr Ketamine HCl 100 mg/ Sodium (Chloride) 100 mls @ 23.85 mls/hr IV ASDIRECTED [facility] Stop: 05/14/17 11:15 Cefazolin Sodium/Dextrose 2 gm (/ Premix) 50 mls @ 100 mls/hr IV ONETIME ONE Stop: 05/14/17 09:29 Last Admin: 05/14/17 15:16 Dose: Not Given Lactated Ringer's (Ringers, Lactated) 1,000 mls @ 100 mls/hr IV ASDIRECTED [facility] Last Admin: 05/14/17 09:31 Dose: 100 mls/hr Acetaminophen 1,000 mg/ Premix 100 mls @ 400 mls/hr IV NOW ONE Stop: 05/14/17 12:51 Last Admin: 05/14/17 19:03 Dose: Not Given Cefazolin Sodium 2 gm/ Sodium (Chloride) 50 mls @ 100 mls/hr IV Q8H [facility] Stop: 05/15/17 05:14 Last Admin: 05/14/17 19:04 Dose: Not Given Cefazolin Sodium/Dextrose 2 gm (/ Premix) 50 mls @ 100 mls/hr IV Q8H [facility] Stop: 05/15/17 10:29 Last Admin: 05/15/17 10:39 Dose: 100 mls/hr Acetaminophen 1,000 mg/ Premix 100 mls @ 400 mls/hr IV NOW ONE Stop: 05/14/17 15:14 Last Admin: 05/14/17 15:21 Dose: 400 mls/hr Lactated Ringer's (Ringers, Lactated) 1,000 mls @ as directed IV .STK-MED ONE Stop: 05/14/17 09:26 Ketamine HCl (Ketalar) 40 mg IV ONETIME ONE Stop: 05/14/17 09:16 Last Admin: 05/14/17 14:44 Dose: Not Given Magnesium Hydroxide (Milk Of Magnesia) 30 ml PO BID [facility] Magnesium Hydroxide (Milk Of Magnesia) 30 ml PO BID [facility] Last Admin: 05/16/17 08:01 Dose: 30 ml Naloxone HCl (Narcan) 0.2 mg IVPUSH ONETIME PRN PRN Reason: Oversedation Naloxone HCl (Narcan) 0.2 mg IVPUSH ONETIME PRN PRN Reason: Oversedation Nicotine (Habitrol) 21 mg TRDERM DAILY [facility] Last Admin: 05/16/17 08:01 Dose: 21 mg Verify Scopolamine (Patch) 0 each TOP DAILY [facility] Last Admin: 05/16/17 08:02 Dose: Not Given Ondansetron HCl (Zofran) 8 mg IVPUSH Q4H PRN PRN Reason: Nausea/Vomiting Ondansetron HCl (Zofran) 8 mg IVPUSH Q4H PRN PRN Reason: Nausea/Vomiting Ondansetron HCl (Zofran) 4 mg .ROUTE .STK-MED ONE Stop: 05/14/17 08:44 Oxycodone HCl (Oxycodone) 10 mg PO Q4H PRN PRN Reason: Pain Stop: 05/15/17 12:38 Oxycodone/Acetaminophen (Percocet 325-5 Mg) 2 tab PO Q4H PRN PRN Reason: Pain Povidone Iodine (Betadine 10% Soln) Confirm Administered Dose 1 ml .ROUTE .STK- MED ONE Stop: 05/14/17 07:01 Last Admin: 05/14/17 13:01 Dose: 1 ml Propofol (Diprivan 20 Ml) 200 mg .ROUTE .STK-MED ONE Stop: 05/14/17 08:44 Rocuronium [place] (Zemuron) 50 mg .ROUTE .STK-MED ONE Stop: 05/14/17 08:44 Scopolamine (Transderm-Scop) 1.5 mg TOP Q72H [facility] Stop: 05/17/17 06:15 Last Admin: 05/14/17 08:26 Dose: 1.5 mg Senna (Senna) 8.6 mg PO BID [facility] Senna (Senna) 8.6 mg PO BID [facility] Last Admin: 05/16/17 08:04 Dose: 8.6 mg Succinylcholine Chloride (Quelicin) 200 mg .ROUTE .STK-MED ONE Stop: 05/14/17 08:44 Thrombin (Thrombin-Jmi) Confirm Administered Dose 15,000 unit .ROUTE .[employer]-MED ONE Stop: 05/14/17 07:01 Last Admin: 05/14/17 13:00 Dose: 10,000 unit Zolpidem Tartrate (Ambien) 5 mg PO BEDTIME PRN PRN Reason: Sleep Zolpidem Tartrate (Ambien) 5 mg PO BEDTIME PRN PRN Reason: Sleep - Exam General: Reports: Alert, Oriented Back Exam: Reports: Normal Inspection Extremities: Normal Inspection, Normal Range of Motion Skin: Reports: Warm, Dry, Intact Wound/Incisions: Reports: Healing Well, Dressing Dry and Intact Neurological: Reports: No New Focal Deficit Psy/Mental Status: Reports: Alert
== END 2017-05-16 12:50 | disposition home or self-care (01) | DRG 320 ==
LOC: JP.SDS 08:01 → EDSTATUS 09:00 → JP.MS 09:30
PROVIDERS: ADMIT Orthopaedic Surgery; ATTEND Orthopaedic Surgery
PROC: 01NB0ZZ Release Lumbar Nerve, Open Approach (ICD-10-PCS; principal; 2017-05-14)
DX: M48.061 Spinal stenosis, lumbar region without neurogenic claudication (principal); M51.16 Intervertebral disc disorders with radiculopathy, lumbar region; M47.27 Other spondylosis with radiculopathy, lumbosacral region; H54.7 Unspecified visual loss; G89.29 Other chronic pain; Z88.5 Allergy status to narcotic agent; Z87.442 Personal history of urinary calculi; Z91.09 Other allergy status, other than to drugs and biological substances
CPT/HCPCS: 36415; 76000; 80048; 85025; 86850; 86900; 86901; 94762; 97110-GP; 97162-GP; 97165-GO; 97530-GP; 97535-GP; 97760-GP; A9270-GY; J0131; J0171; J0330; J0690; J0735; J1100; J1885; J2405; J2704; J2795; J3010; J7030; J7050; J7120

== ENCOUNTER 2017-06-17 08:24 | Day surgery (SDC) | payer OTHER, MEDICAID ==
[2017-06-17] MEDS ORDERED: Acetaminophen 500 MG Tab PO ONE (08:45)
[2017-06-17] MEDS ORDERED: Scopolamine 1.5 MG Transdermal Patch TOP SCH (08:45)
[2017-06-17] MEDS ORDERED: Nicotine 21 MG/24 Hr Patch TRDERM ONE (08:55)
[2017-06-17] MEDS ORDERED: Lactated Ringers 1,000 ML IV SCH (09:00)
[2017-06-17] MEDS ORDERED: Gentamicin 40 MG/ML 2 ML Vial ONE (09:31)
[2017-06-17] MEDS ORDERED: Neostigmine Methylsulfate 1 MG/ML 5 ML Syringe ONE (09:32)
[2017-06-17] MEDS ORDERED: Succinylcholine 200 MG/10 ML MDV ONE (09:32)
[2017-06-17] MEDS ORDERED: Propofol 200 MG/20 ML SDV ONE (09:32)
[2017-06-17] MEDS ORDERED: fentaNYL 250 MCG/5 ML SDV ONE ×2 (09:32→10:13)
[2017-06-17] MEDS ORDERED: Povidone-Iodine 10% Soln 118.25 ML Bottle ONE (09:32)
[2017-06-17] MEDS ORDERED: Rocuronium 50 MG/5 ML Vial ONE (09:32)
[2017-06-17] MEDS ORDERED: Glycopyrrolate 0.2 MG/ML 5 ML MDV ONE (09:32)
[2017-06-17] MEDS ORDERED: Ondansetron 4 MG/2 ML SDV ONE (09:32)
[2017-06-17] MEDS ORDERED: Dexamethasone 4 MG/ML SDV ONE (09:32)
[2017-06-17] MEDS ORDERED: ceFAZolin 2 GM in Premix Bag 1 BAG IV ONE (10:00)
[2017-06-17] MEDS ORDERED: Bupivacaine 0.5%/EPINEPHrine 1:200,000 50 ML MDV ONE (10:29)
[2017-06-17] MEDS ORDERED: Ketamine 500 MG/5 ML MDV IV SCH (10:30)
[2017-06-17] MEDS ORDERED: fentaNYL 100 MCG/2 ML SDV IVPUSH ONE (11:10)
[2017-06-17] MEDS ORDERED: diphenhydrAMINE 25 MG Cap PO ONE (12:00)
[2017-06-17 14:16] VITALS: BP 127/88
--- NOTE | 2017-06-17 18:24 | OR ---
DATE OF PROCEDURE: 06/17/2017 PREOPERATIVE DIAGNOSIS: Draining lumbar wound. POSTOPERATIVE DIAGNOSIS: Draining lumbar wound. PROCEDURE: 1. Irrigation and debridement of the lumbar wound. 2. Application of small wound VAC with an area measuring 3 cm x 3 cm x 2 cm. ANESTHESIA: General endotracheal intubation. FLUIDS: Lactated Ringer's solution. ESTIMATED BLOOD LOSS: 25 mL. COMPLICATIONS: None. SPECIMENS: Aerobic and anaerobic cultures. DISCHARGE DISPOSITION: Stable to PACU. INDICATIONS FOR PROCEDURE: The patient is well known to me. We had previously performed a laminectomy and then did another laminectomy on him after this last one, which was just over one month ago. He has continued to have draining wound. He was seen by Dr. Villasenor, who obtained an MRI confirming that there was fluid just dorsal to the dura extending to the skin. Risks and benefits of the procedure were explained to the patient. Informed consent was obtained. DETAILS OF PROCEDURE: The patient was seen preoperatively by myself and the Anesthesia staff in the preop holding area where the operative site was marked. He was brought to the operative suite by the Anesthesia staff, where general anesthesia was administered. He was placed into a Alfredo table in prone position. All extremities were found to be well padded. The bed was then slightly flexed. The patient was then prepped and draped in a sterile manner. Time-out was called identifying the correct patient, the correct procedure, the correct site, and the antibiotics had begun within appropriate period of time. I then made an incision through the draining area and then slightly proximal, so this was about a 6 cm area. I was then able to use blunt dissection to go through the deep lumbar fascia and then enter the epidural space. I really did not see anything that looked terribly bad. There was serous fluid, but all the tissues were in very good condition. I irrigated with 1 L of gentamicin-infused irrigation. We then took our cultures. I then applied some Betadine and then irrigated another liter, then applied Betadine and then irrigated again. We switched out our instruments and put Betadine on our gloves and switched out the Yankauer suction and then irrigated again, and then closed the deep fascia with #1 StrataFix, followed by partial closure of the subcutaneous area with #2 StrataFix, followed by application of the wound VAC with a sponge in the area mentioned above. After this had been on, we then flipped the patient back into a supine position on his hospital bed and taken to the PACU in stable condition. Vj Vu DO /[id number]
== END 2017-06-17 13:45 | disposition home or self-care (01) ==
LOC: JP.SDS 08:24
PROVIDERS: ATTEND Orthopaedic Surgery
DX: T81.4XXA Infection following a procedure, initial encounter (principal); F32.9 Major depressive disorder, single episode, unspecified; G43.909 Migraine, unspecified, not intractable, without status migrainosus; F17.210 Nicotine dependence, cigarettes, uncomplicated; G47.33 Obstructive sleep apnea (adult) (pediatric); Z91.030 Bee allergy status; Z88.8 Allergy status to other drugs, medicaments and biological substances; Z88.5 Allergy status to narcotic agent; Z98.890 Other specified postprocedural states
CPT/HCPCS: 10180; 87070; 87075; 87205; A9270; J0330; J0690; J1100; J1580; J2405; J2704; J2710; J3010; J7120

== ENCOUNTER 2018-08-20 09:50 | Emergency (ER) | payer MEDICAID, OTHER ==
[2018-08-20 10:18] VITALS: BP 148/104; PULSE 63
[2018-08-20] MEDS ORDERED: Baclofen 10 MG Tab PO ONE (11:15)
[2018-08-20] MEDS ORDERED: Ketorolac 60 MG/2 ML SDV IM ONE (11:15)
--- NOTE | 2018-08-20 11:17 | EDM.PDOC ---
ED HPI GENERAL MEDICAL PROBLEM - General Chief Complaint: General Stated Complaint: PAIN FROM PINCHED NERVE IN NECK Time Seen by Provider: 08/20/18 11:16 Source of Information: Reports: Patient History Limitations: Reports: No Limitations - History of Present Illness INITIAL COMMENTS - FREE TEXT/NARRATIVE: pt has numbness in the left arm and she has severe pain in the left shoulder blade. Onset: Today Duration: Hour(s): Location: Reports: Neck Associated Symptoms: Reports: Weakness Neck Pain Score (Numeric/FACES): 3 - Related Data Allergies Allergy/AdvReac Type Severity Reaction Status Date / Time bee venom protein (honey bee) Allergy Other Verified 08/20/18 10:11 fentanyl Allergy Itching Verified 08/20/18 10:11 fexofenadine HCl Allergy Hives Verified 08/20/18 10:11 [From Lilly] oxycodone Allergy Hives Verified 08/20/18 10:11 Home Meds: Home Meds NK [No Known Home Meds] 09/10/17 [History] Past Medical History HEENT History: Reports: Impaired Vision Other HEENT History: wears glasses Cardiovascular History: Reports: None Respiratory History: Reports: Sleep Apnea, Other (See Below) Other Respiratory History: coughing, pneumonia Gastrointestinal History: Reports: Bowel Obstruction Genitourinary History: Reports: Renal Calculus Musculoskeletal History: Reports: Back Pain, Chronic, Fracture Other Musculoskeletal History: s/p Laminectomy 05/14/17 , ( repeat surgery because infection Neurological History: Reports: Headaches, Chronic, Migraines Other Neuro History: previous migraines Psychiatric History: Reports: Depression Endocrine/Metabolic History: Reports: Obesity/BMI 30+ Hematologic History: Reports: None Immunologic History: Reports: None Oncologic (Cancer) History: Reports: None Dermatologic History: Reports: Venous Stasis Dermatitis - Infectious Disease History Infectious Disease History: Reports: MRSA - Past Surgical History GI Surgical History: Reports: Colonoscopy Neurological Surgical History: Reports: Laminectomy, Lumbar Spine, Other (See Below) Other Neurological Surgeries/Procedures: infection with incision and drainage wound vac Musculoskeletal Surgical History: Reports: Shoulder Surgery, Other (See Below) Other Musculoskeletal Surgeries/Procedures:: elbow surgery Dermatological Surgical History: Reports: Skin Biopsy Social & Family History - Family History Family Medical History: Noncontributory HEENT: Reports: Cataract, Impaired Vision Cardiac: Reports: [place], [place] OBGYN: Reports: Recurrent Spontaneous Musculoskeletal: Reports: Arthritis, RA Neurological: Reports: CVA Psychiatric: Reports: Anxiety, Depression Endocrine/Metabolic: Reports: Diabetes, type II - Tobacco Use Smoking Status *Q: Current Every Day Smoker Years of Tobacco use: 25 Packs/Tins Daily: 1 - Caffeine Use Caffeine Use: Reports: Coffee, Energy Drinks, Soda - Recreational Drug Use Recreational Drug Use: No ED ROS GENERAL - Review of Systems Review Of Systems: See Below HEENT: Reports: No Symptoms Respiratory: Reports: No Symptoms Cardiovascular: Reports: No Symptoms Endocrine: Reports: No Symptoms GI/Abdominal: Reports: No Symptoms : Reports: No Symptoms Musculoskeletal: Reports: Other (pt has pain in the left shoulder and left shoulder blade. He has numbness in the left arm. ) Neurological: Reports: No Symptoms ED EXAM, GENERAL - Physical Exam Exam: See Below Free Text/Narrative:: pt is alert and is having severe pain in the left shoulder blade and shoulder. He has numbness in the left arm. He has had symptoms for the past 2 weeks. Exam Limited By: No Limitations General Appearance: Alert, Anxious, Moderate Distress Ears: Normal TMs Nose: Normal Inspection Throat/Mouth: Normal Inspection Head: Atraumatic Neck: Other ( tender on the left side. ) Respiratory/Chest: No Respiratory Distress Cardiovascular: Regular Rate, Rhythm GI/Abdominal: Soft, Non-Tender Rectal (Males) Exam: Deferred Back Exam: Normal Inspection Extremities: Other (pain in the lef shoulder blade and numbness in the left arm. Pt is very uncomfortable. a) Neurological: Alert, Oriented, Normal Cognition Course - Vital Signs Last Recorded V/S: Last Vital Signs Temp 36.6 C 08/20/18 10:17 Pulse 63 08/20/18 10:17 Resp 16 08/20/18 10:17 BP 148/104 H 08/20/18 10:17 Pulse Ox 95 08/20/18 10:17 - Orders/Labs/Meds Meds: Medications Discontinued Medications Generic Name Dose Route Start Last Admin Trade Name Jesus PRN Reason Stop Dose Admin Baclofen 10 mg 08/20/18 11:15 08/20/18 11:40 Lioresal PO 08/20/18 11:16 10 mg ONETIME ONE Administration Diphenhydramine HCl 25 mg 08/20/18 12:23 08/20/18 12:49 Benadryl PO 08/20/18 12:24 25 mg ONETIME ONE Administration Ketorolac Tromethamine 60 mg 08/20/18 11:15 08/20/18 11:40 Toradol IM 08/20/18 11:16 60 mg ONETIME ONE Administration Oxycodone/Acetaminophen 1 tab 08/20/18 12:13 08/20/18 12:19 Percocet 325-5 Mg PO 08/20/18 12:14 1 tab ONETIME ONE Administration - Re-Assessments/Exams Free Text/Narrative Re-Assessment/Exam: 08/20/18 13:06 cervical spine ceries was done which showed no sig acute changes. He was given baclofen, torodol and percocet. He is much more comfortable. 08/22/18 07:23 The pt was given percocet and he states h was allergic to oxycodone. He was watched and he did not develop any hives or did not have a reaction. He was given benadryl 50mg. Aftr some observation he was discharged. Departure - Departure Time of Disposition: 13:08 Disposition: Home, Self-Care 01 Condition: Fair Clinical Impression: Spasm of cervical paraspinous muscle, Numbness and tingling in left arm - Discharge Information Instructions: Muscle Cramps and Spasms, [id number] Referrals: PCP,None [Primary Care Provider] - Forms: ED Department Discharge Care Plan Goals: moist warm packs to the left shoulder blade area, baclofen 10 mg tid to relax muscles, motrin 600mg qid with food, norco 5/325 q6h prn forpain, appt with Fuad Cartwright in 3 days, rtc for a Mri of the cervical spine because of numbness in left arm.
--- NOTE | 2018-08-20 11:58 | CRLCR ---
Severe pain Technique: Eight images of the cervical spine Findings: Patient`s head is tilted towards the right. Normal height and alignment of the cervical vertebral bodies. Poor visualization of the T6-T1 levels . No fractures are seen. Lateral masses align normally with C2. Prevertebral soft tissues appear within normal limits. IMPRESSION: Unremarkable cervical spine limited visualization of the C6-T1 levels. Dictated by Diana Ramos MD @ Aug 20 2018 11:54AM Signed by Dr. Diana Ramos @ Aug 20 2018 11:56AM
[2018-08-20] MEDS ORDERED: Acetaminophen/oxyCODONE 325-5 MG Tab PO ONE (12:13)
[2018-08-20] MEDS ORDERED: diphenhydrAMINE 25 MG Cap PO ONE (12:23)
== END 2018-08-20 13:19 | disposition home or self-care (01) ==
LOC: JP.ED 09:50
DX: M62.838 Other muscle spasm (principal); R20.0 Anesthesia of skin; R20.2 Paresthesia of skin; E66.9 Obesity, unspecified; F17.210 Nicotine dependence, cigarettes, uncomplicated; Z91.030 Bee allergy status; Z88.8 Allergy status to other drugs, medicaments and biological substances
CPT/HCPCS: 72050; 96372; 99283; A9270; J1885

== ENCOUNTER 2020-11-16 07:21 | Day surgery (SDC) | payer OTHER ==
[~2020-11-16 07:21] MED LIST changes: +Lidocaine 1% with EPINEPHrine 1:100,000 50 ML MDV ONE; -Povidone-Iodine 10% Soln 118.25 ML Bottle ONE; +Sodium Chloride 0.9% 10 ML ONE; +Sodium Tetradecyl Sulfate 1% 20 MG/2 ML SDV ONE; -Thrombin (Bovine) 5,000 Unit Kit ONE
[2020-11-16] MEDS ORDERED: Sodium Chloride 0.9% 1,000 ML IV SCH (07:45)
[2020-11-16] MEDS ORDERED: Midazolam 1 MG/ML 2 ML SDV ONE ×2 (07:57→08:30)
[2020-11-16] MEDS ORDERED: fentaNYL 100 MCG/2 ML SDV ONE (07:57)
[2020-11-16] MEDS ORDERED: Propofol 200 MG/20 ML SDV ONE ×4 (07:57→08:59)
[2020-11-16] MEDS ORDERED: Bupivacaine 0.5% 30 ML SDV ONE (07:58)
[2020-11-16] MEDS ORDERED: Lidocaine 1% w/EPINEPHrine 50 ML, Sodium Bicarbonate 5 MEQ in Sodium Chloride 0.9% 950 ML INJECT SCH (08:05)
[2020-11-16] MEDS ORDERED: Sodium Chloride 0.9% 10 ML SDV ONE (08:35)
[2020-11-16] MEDS ORDERED: Sodium Tetradecyl Sulfate 1% 20 MG/2 ML SDV INJECT ONE (08:35)
[2020-11-16] MEDS ORDERED: Lidocaine 1% with EPINEPHrine 1:100,000 50 ML MDV INJECT ONE (08:35)
[2020-11-16 10:59] VITALS: BP 124/85; PULSE 52
--- NOTE | 2020-11-17 13:09 | OR ---
DATE OF PROCEDURE: 11/16/2020 SURGEON: Kaiden Villasenor MD PROCEDURES: 1. Radiofrequency ablation of left greater saphenous vein. 2. Radiofrequency ablation of right greater saphenous vein. 3. Radiofrequency ablation of left lesser saphenous vein. 4. Sclerotherapy, left leg, multiple. 5. Sclerotherapy, right leg, multiple. 6. Compression wrap, left leg ([id number]). 7. Compression wrap, right leg ([id number]). COMPLICATIONS: None. NURSING SERVICE DIRECTOR: None. ANESTHESIA: MAC. PREOPERATIVE DIAGNOSIS: Venous insufficiency with inflammation and pain. POSTOPERATIVE DIAGNOSIS: Venous insufficiency with inflammation and pain. RISKS: Risks, benefits, alternatives, and limitations including, but not limited to infection, bleeding, DVT formation, chronic wounds, chronic pain, numbness, and other risks not listed here were explained to the patient and they wished to proceed. PROCEDURE IN DETAIL: The patient was placed in supine position. Left greater saphenous vein was accessed using a 21-gauge needle, then exchanged for a 35,000th wire, then exchanged for a 7-Cam[place]onian sheath. The RFA probe was advanced to 3 cm from saphenofemoral junction. Tumescent fluid was injected in 1 cm jacket around this and verified a second and third time. Direct even pressure was held as the probe was deployed x2 proximally distally and x1 in all other segments. Sheath and device were then removed and direct pressure was held for 10 minutes and Dermabond applied. Other side was then performed in same manner, same fashion, same technique, and same sequence using the same equipment. Sclerotherapy was then performed left and right legs using 0.33% sodium tetradactyl. This was drawn back to ensure intravascular injection only. No more than 2 mL was injected in one location. There were 6 on the right and 7 on the left. Two-layer, 2-stage compression wrapping was then performed in a [id number] pattern. This was a 20 mmHg pressure. The patient tolerated procedure well. Of note, after bilateral greater saphenous veins were ablated, the left lesser saphenous vein was also ablated in the same manner, same fashion, same technique, in the same sequence. The patient tolerated the procedure well. Kaidne Villasenor MD /[id number]
== END 2020-11-16 10:45 | disposition home or self-care (01) ==
LOC: JP.SDS 07:21
PROVIDERS: ATTEND Surgery
DX: I83.12 Varicose veins of left lower extremity with inflammation (principal); I83.11 Varicose veins of right lower extremity with inflammation; I83.811 Varicose veins of right lower extremity with pain; I83.812 Varicose veins of left lower extremity with pain; F17.210 Nicotine dependence, cigarettes, uncomplicated; G47.33 Obstructive sleep apnea (adult) (pediatric); Z98.890 Other specified postprocedural states; Z79.899 Other long term (current) drug therapy; Z88.5 Allergy status to narcotic agent; Z88.8 Allergy status to other drugs, medicaments and biological substances
CPT/HCPCS: J1642; J2250; J2704; J3010; J3490; J7030

== ENCOUNTER → 2022-04-08 | Day surgery (SDC) | payer OTHER ==
[~2022-04-08] MED LIST changes: +Lactated Ringers 1,000 ML IV SCH; -Lidocaine 1% with EPINEPHrine 1:100,000 50 ML MDV ONE; +Midazolam 1 MG/ML 2 ML SDV ONE; +Propofol 200 MG/20 ML SDV ONE; -Sodium Chloride 0.9% 10 ML ONE; -Sodium Tetradecyl Sulfate 1% 20 MG/2 ML SDV ONE; +fentaNYL 50 MCG/ML SDV ONE
== END ==
LOC: JP.SDS 07:40
PROVIDERS: ATTEND Student in an Organized Health Care Education/Training Program
DX: Z12.11 Encounter for screening for malignant neoplasm of colon (principal); Z53.09 Procedure and treatment not carried out because of other contraindication
CPT/HCPCS: 99202

== ENCOUNTER 2022-04-09 06:57 | Day surgery (SDC) | payer OTHER ==
[2022-04-09] MEDS ORDERED: Lactated Ringers 1,000 ML IV SCH (08:00)
[2022-04-09 10:24] VITALS: BP 125/84; PULSE 55
== END 2022-04-09 10:05 | disposition home or self-care (01) ==
LOC: JP.SDS 06:57
PROVIDERS: ATTEND Family Medicine
DX: Z12.11 Encounter for screening for malignant neoplasm of colon (principal); K62.1 Rectal polyp; Z79.899 Other long term (current) drug therapy; Z87.891 Personal history of nicotine dependence; Z98.890 Other specified postprocedural states; Z80.0 Family history of malignant neoplasm of digestive organs; Z88.5 Allergy status to narcotic agent; Z91.030 Bee allergy status; Z88.8 Allergy status to other drugs, medicaments and biological substances
CPT/HCPCS: 45380; J7120